=== PATIENT | male | born 1990 | race Caucasian/White ===

== ENCOUNTER 2018-01-04 18:04 | Emergency (ER) | payer OTHER ==
[2018-01-04] MEDS ORDERED: SODIUM CHLORIDE 0.9% 1,000 ML IV ONE (18:39)
[2018-01-04 18:41] LABS: BASOPHILS # (AUTO) 0.1 10^3/uL (0.0-0.1); BASOPHILS % (AUTO) 0.7 %; EOSINOPHILS # (AUTO) 0.1 10^3/uL (0.0-0.7); EOSINOPHILS % (AUTO) 1.2 %; HGB - HEMOGLOBIN 15.3 g/dL (14.0-18.0); LYMPHOCYTES # (AUTO) 2.4 10^3/uL (1.5-3.5); LYMPHOCYTES % (AUTO) 28.2 %; MEAN CORPUSCULAR HEMOGLOBIN 30.7 pg (27.0-31.0); MEAN CORPUSCULAR VOLUME 87.8 fL (80.0-94.0); MEAN PLATELET VOLUME 9.9 fL (7.4-11.4); MONOCYTES # (AUTO) 0.6 10^3/uL (0.0-1.0); MONOCYTES % (AUTO) 6.9 %; NEUTROPHILS # (AUTO) 5.4 10^3/uL (1.5-6.6); PLT - PLATELET COUNT 181 10^3/uL (130-450); RED BLOOD COUNT 4.98 10^6/uL (4.70-6.10); RED CELL DISTRIBUTION WIDTH 14.1 % (12.0-15.0); WHITE BLOOD COUNT 8.5 x10^3/uL (4.8-10.8)
--- NOTE | 2018-01-04 18:41 | ED Physician Documentation ---
PD HPI NVD - Stated complaint Stated Complaint: LIGHTHEADED/NAUSEATED/NECK PX - Chief complaint Chief Complaint: Abd Pain - History obtained from History obtained from: Patient - History of Present Illness Timing - onset: Other (The last 2 days he has been feeling a little ill and achy with left-sided neck pain but nothing was very severe until about 45 minutes after eating a sandwich for lunch today and he got acutely nauseous and very dizzy, lightheaded when upright and better with being flat. He never vomited. It is not associated with abdominal pain or diarrhea. He has not had sick contacts or recent travel. There is no sore throat.) Review of Systems Constitutional: reports: Chills, Fatigue. denies: Fever Nose: denies: Rhinorrhea / runny nose, Congestion Throat: denies: Sore throat Cardiac: denies: Chest pain / pressure, Palpitations Respiratory: denies: Dyspnea, Cough GI: reports: Nausea. denies: Abdominal Pain, Vomiting, Diarrhea : denies: Dysuria PD PAST MEDICAL HISTORY - Past Medical History Past Medical History: No - Past Surgical History Past Surgical History: No - Present Medications Home Medications: Ambulatory Orders Medication Instructions Recorded Confirmed No Known Home Medications [No 01/04/18 01/04/18 Known Home Medications] - Allergies Allergies/Adverse Reactions: Allergies Allergy/AdvReac Type Severity Reaction Status Date / Time fluoxetine Allergy Anxiety Verified 01/04/18 18:13 - Social History Does the pt smoke?: No Smoking Status: Never smoker PD ED PE NORMAL - Vitals Vital signs reviewed: Yes - General General: Alert and oriented X 3, No acute distress - HEENT HEENT: PERRL, EOMI - Neck Neck: Supple, no meningeal sign, No bony TTP - Cardiac Cardiac: RRR, No murmur - Respiratory Respiratory: No respiratory distress, Clear bilaterally - Abdomen Abdomen: Normal bowel sounds, Soft, Non tender - Back Back: No CVA TTP, No spinal TTP - Derm Derm: Normal color, Warm and dry - Extremities Extremities: No edema, No calf tenderness / cord - Neuro Neuro: Alert and oriented X 3, Normal speech Results - Vitals Vitals: Vital Signs - 24 hr 01/04/18 18:07 Temperature 36.1 C L Heart Rate 75 Respiratory 20 Rate Blood Pressure 152/90 H O2 Saturation 98 Oxygen O2 Source Room air - Labs Labs: Laboratory Tests 01/04/18 01/04/18 18:34 18:34 WBC 8.5 RBC 4.98 Hgb 15.3 Hct 43.7 MCV 87.8 MCH 30.7 MCHC 35.0 RDW 14.1 Plt Count 181 MPV 9.9 Neut # (Auto) 5.4 Lymph # (Auto) 2.4 [place] # (Auto) 0.6 Eos # (Auto) 0.1 Baso # (Auto) 0.1 Absolute Nucleated RBC 0.00 Nucleated RBC % 0.1 Sodium 136 Potassium 3.9 Chloride 101 Carbon Dioxide 25 Anion Gap 10.0 BUN 13 Creatinine 1.1 Estimated GFR (MDRD) 80 L Glucose 97 Calcium 9.3 Total Bilirubin 0.7 AST 32 ALT 43 Alkaline Phosphatase 64 Total Protein 7.6 Albumin 4.4 Globulin 3.2 Albumin/Globulin Ratio 1.4 Lipase 29 PD MEDICAL DECISION MAKING - ED course ED course: 27-year-old gentleman with nonspecific symptoms of left-sided neck pain without abnormality on physical examination and vomiting and lightheadedness today with unremarkable exam and diagnostics here. Feeling better after IV fluids. - Sepsis Event Vital Signs: Vital Signs - 24 hr 01/04/18 18:07 Temperature 36.1 C L Heart Rate 75 Respiratory 20 Rate Blood Pressure 152/90 H O2 Saturation 98 Oxygen O2 Source Room air Departure - Departure Disposition: 01 Home, Self Care Clinical Impression: Dizziness, Neck pain Condition: Good Record reviewed to determine appropriate education?: Yes Instructions: ED Dizziness UKO Comments: Your blood pressure was elevated today on check into the emergency department. This does not mean that you have hypertension, it is a common phenomenon to come to the emergency department and have elevated blood pressure. I recommend that you see your primary care physician within the week to have it rechecked when you are feeling better.
[2018-01-04 19:08] LABS: ALBUMIN 4.4 g/dL (3.2-5.5); ALBUMIN/GLOBULIN RATIO 1.4 (1.0-2.2); BILIRUBIN,TOTAL 0.7 mg/dL (0.2-1.0); CALCIUM 9.3 mg/dL (8.5-10.3); CREATININE 1.1 mg/dL (0.6-1.2); TOTAL PROTEIN 7.6 g/dL (6.7-8.2)
[2018-01-04 19:26] VITALS: BP 144/71
== END 2018-01-04 19:35 | disposition home or self-care (01) ==
LOC: ED 18:04
DX: R42 Dizziness and giddiness (principal); M54.2 Cervicalgia
CPT/HCPCS: 36415; 80053; 83690; 85025; 96360; 99283

== ENCOUNTER 2018-02-12 19:23 | Emergency (ER) | payer OTHER ==
[2018-02-12] MEDS ORDERED: SODIUM CHLORIDE 0.9% 1,000 ML IV ONE (20:46)
[2018-02-12 20:49] LABS: BASOPHILS # (AUTO) 0.1 10^3/uL (0.0-0.1); BASOPHILS % (AUTO) 1.2 %; EOSINOPHILS # (AUTO) 0.1 10^3/uL (0.0-0.7); EOSINOPHILS % (AUTO) 0.9 %; HGB - HEMOGLOBIN 15.7 g/dL (14.0-18.0); LYMPHOCYTES # (AUTO) 2.8 10^3/uL (1.5-3.5); LYMPHOCYTES % (AUTO) 29.6 %; MEAN CORPUSCULAR HEMOGLOBIN 31.3 pg (27.0-31.0); MEAN CORPUSCULAR HGB CONC 34.7 g/dL (32.0-36.0); MEAN PLATELET VOLUME 10.1 fL (7.4-11.4); MONOCYTES # (AUTO) 0.7 10^3/uL (0.0-1.0); NEUTROPHILS # (AUTO) 5.6 10^3/uL (1.5-6.6); NEUTROPHILS % (AUTO) 60.3 %; PLT - PLATELET COUNT 176 10^3/uL (130-450); RED BLOOD COUNT 5.02 10^6/uL (4.70-6.10); RED CELL DISTRIBUTION WIDTH 13.9 % (12.0-15.0); WHITE BLOOD COUNT 9.3 x10^3/uL (4.8-10.8)
[2018-02-12] MEDS ORDERED: ONDANSETRON 4 MG/2 ML VIAL IVP STA (20:54)
--- NOTE | 2018-02-12 20:54 | ED Physician Documentation ---
PD HPI ABD PAIN - Stated complaint Stated Complaint: LT SIDE PX - Chief complaint Chief Complaint: Abd Pain - History obtained from History obtained from: Patient - History of Present Illness Timing - onset: How many days ago (5) Timing - duration: Days (5) Timing - details: Gradual onset Pain level max: 5 Pain level now: 5 Quality: Cramping, Aching, Pain Location: Other (L sided abdomen) Radiation: Other (non-radiating) Improved by: Other (nothing) Worsened by: Other (eating, moving) Associated symptoms: Fever (states felt warm), Nausea, Diarrhea. No: Vomiting, Hematemesis, Constipation, Melena, Hematochezia Review of Systems Constitutional: reports: Fever (sibjective), Chills Nose: denies: Rhinorrhea / runny nose, Congestion Throat: denies: Sore throat Cardiac: denies: Chest pain / pressure Respiratory: denies: Cough Skin: denies: Rash Musculoskeletal: denies: Neck pain, Back pain Neurologic: denies: Focal weakness, Numbness, Headache PD PAST MEDICAL HISTORY - Past Medical History Past Medical History: No - Past Surgical History Past Surgical History: No - Present Medications Home Medications: Ambulatory Orders Medication Instructions Recorded Confirmed Ondansetron Odt [Zofran] 4 mg TL Q6H PRN #10 tablet 02/12/18 - Allergies Allergies/Adverse Reactions: Allergies Allergy/AdvReac Type Severity Reaction Status Date / Time fluoxetine Allergy Anxiety Verified 02/12/18 19:28 - Living Situation Living Situation: reports: With family Living Arrangement: reports: At home - Social History Does the pt smoke?: No Smoking Status: Never smoker PD ED PE NORMAL - Vitals Vital signs reviewed: Yes - General General: Alert and oriented X 3, No acute distress - HEENT HEENT: Moist mucous membranes - Neck Neck: Supple, no meningeal sign - Cardiac Cardiac: RRR - Respiratory Respiratory: No respiratory distress, Clear bilaterally - Abdomen Abdomen: Soft, Other (LLQ mild ttp without peritoneal signs. ) - Back Back: No CVA TTP, No spinal TTP - Derm Derm: Warm and dry - Extremities Extremities: No edema - Neuro Neuro: Alert and oriented X 3 - Psych Psych: Normal mood, Normal affect Results - Vitals Vitals: Vital Signs - 24 hr 02/12/18 02/12/18 02/12/18 19:25 21:42 22:35 Temperature 35.8 C L 36.5 C Heart Rate 84 72 65 Respiratory 16 16 14 Rate Blood Pressure 139/86 H 114/80 121/84 H O2 Saturation 97 97 96 Oxygen O2 Source Room air - Labs Labs: Laboratory Tests 02/12/18 02/12/18 02/12/18 20:40 20:43 20:43 WBC 9.3 RBC 5.02 Hgb 15.7 Hct 45.2 MCV 90.0 MCH 31.3 H MCHC 34.7 RDW 13.9 Plt Count 176 MPV 10.1 Neut # (Auto) 5.6 Lymph # (Auto) 2.8 [place] # (Auto) 0.7 Eos # (Auto) 0.1 Baso # (Auto) 0.1 Absolute Nucleated RBC 0.01 Nucleated RBC % 0.1 Sodium 136 Potassium 3.7 Chloride 102 Carbon Dioxide 29 Anion Gap 5.0 L BUN 16 Creatinine 0.9 Estimated GFR (MDRD) 101 Glucose 94 Calcium 9.3 Total Bilirubin 0.4 AST 20 ALT 39 Alkaline Phosphatase 59 Total Protein 8.4 H Albumin 4.5 Globulin 3.9 Albumin/Globulin Ratio 1.2 Lipase 34 Urine Color YELLOW Urine Clarity CLEAR Urine pH 7.0 Ur Specific [place] 1.015 Urine Protein NEGATIVE Urine Glucose (UA) NEGATIVE Urine Ketones NEGATIVE Urine Occult Blood NEGATIVE Urine Nitrite NEGATIVE Urine Bilirubin NEGATIVE Urine Urobilinogen 0.2 (NORMAL) Ur Leukocyte Esterase NEGATIVE Ur Microscopic Review NOT INDICATED Urine Culture Comments NOT INDICATED - Rads (name of study) CT abd/pelvis Radiology: Prelim report reviewed, EMP read contemporaneously, See rad report (No acute abnormalities. ) PD MEDICAL DECISION MAKING - ED course Complexity details: reviewed results, re-evaluated patient (Soft nontender nondistended abdomen on serial exam), considered differential, d/w patient ED course: Patient is a 27-year-old male who presents to the emergency department with what appears to be likely viral diarrhea. Nonbloody. No evidence of diverticulitis or abscess on CT scan. He is well-appearing, nontoxic. Afebrile. Tolerating p.o. without difficulty. No laboratory testing abnormalities. We will have him follow-up with his PCP for further care patient counseled regarding signs and symptoms for which I believe and urgent re-evaluation would be necessary. Patient with good understanding of and agreement to plan and is comfortable going home at this time This document was made in part using voice recognition software. While efforts are made to proofread this document, sound alike and grammatical errors may occur. - Sepsis Event Vital Signs: Vital Signs - 24 hr 02/12/18 02/12/18 02/12/18 19:25 21:42 22:35 Temperature 35.8 C L 36.5 C Heart Rate 84 72 65 Respiratory 16 16 14 Rate Blood Pressure 139/86 H 114/80 121/84 H O2 Saturation 97 97 96 Oxygen O2 Source Room air Departure - Departure Disposition: 01 Home, Self Care Clinical Impression: Viral syndrome Diarrhea Qualifiers: Diarrhea type: unspecified type Qualified Code(s): R19.7 - Diarrhea, unspecified Condition: Good Instructions: ED Diarrhea Viral, ED Viral Syndrome Follow-Up: Gwendolyn Renae MD [Primary Care Provider] - Within 1 week (if not better) Prescriptions: Ondansetron Odt [Zofran] 4 mg TL Q6H PRN #10 tablet PRN Reason: Nausea / Vomiting Comments: Drink plenty of fluids. Return if you worsen. Discharge Date/Time: 02/12/18 21:36
[2018-02-12] MEDS ORDERED: IOPAMIDOL-300 100 ML VIAL ONE (20:59)
[2018-02-12 21:03] LABS: ALBUMIN 4.5 g/dL (3.2-5.5); ALBUMIN/GLOBULIN RATIO 1.2 (1.0-2.2); BILIRUBIN,TOTAL 0.4 mg/dL (0.2-1.0); CALCIUM 9.3 mg/dL (8.5-10.3); CREATININE 0.9 mg/dL (0.6-1.2); TOTAL PROTEIN 8.4 g/dL (6.7-8.2)
[2018-02-12] MEDS ORDERED: IOPAMIDOL-300 100 ML VIAL IVP ONE (21:21)
[2018-02-12 21:22] LABS: BILIRUBIN,URINE NEGATIVE (NEGATIVE); GLUCOSE, URINE (UA) NEGATIVE (NEGATIVE); KETONES,URINE (UA) NEGATIVE (NEGATIVE); LEUKOCYTE ESTERASE, URINE NEGATIVE (NEGATIVE); NITRITE,URINE NEGATIVE (NEGATIVE); OCCULT BLOOD,URINE NEGATIVE (NEGATIVE); PROTEIN,URINE NEGATIVE (NEGATIVE); UROBILINOGEN,URINE 0.2 (NORMAL) E.U./dL (NORMAL)
[2018-02-12 21:23] LABS: CLARITY,URINE CLEAR (CLEAR)
--- NOTE | 2018-02-12 21:40 | CT Report ---
Reason: L sided abd pain Procedure Date: 02/12/2018 Accession Number: [id number] / [id number] Procedure: CT - Abdomen/Pelvis W/ CPT Code: FULL RESULT: EXAM: CT ABDOMEN AND PELVIS EXAM DATE: 02/12/2018 09:28 PM. CLINICAL HISTORY: L sided abd pain. COMPARISONS: None. TECHNIQUE: Routine helical CT imaging was performed through the abdomen and pelvis. IV contrast: ISOVUE 300 100mL. Enteric contrast: No. Reconstructions: Coronal and sagittal. In accordance with CT protocol optimization, one or more of the following dose reduction techniques were utilized for this exam: automated exposure control, adjustment of mA and/or KV based on patient size, or use of iterative reconstructive technique. FINDINGS: ABDOMEN: Lung Bases: Incompletely included lower lungs are grossly clear. Heart size is within normal limits. No basilar effusions. Liver: Unremarkable. Spleen: Unremarkable. Pancreas: Unremarkable. Gallbladder/Bile Ducts: Gallbladder is unremarkable. Biliary tree is normal caliber. Adrenal Glands: Unremarkable. Kidneys: No mass, calculi, or hydronephrosis. Peritoneum/Mesentery/Bowel: No free fluid, free air, or collection. No intestinal obstruction or inflammation. The appendix is within normal limits. Lymph nodes: No mesenteric, periportal, or retroperitoneal lymphadenopathy. Vasculature: Abdominal aorta is nonaneurysmal. Portal vein is patent. Hepatic veins are patent. PELVIS: The bladder is unremarkable for the degree of distention. Prostate is present. No pelvic lymphadenopathy. Bones: No suspicious osseous lesions. IMPRESSION: No acute abnormalities. RADIA
[2018-02-12] MEDS ORDERED: KETOROLAC 60 MG/2 ML VIAL IVP STA (22:00)
[2018-02-12 22:39] VITALS: BP 121/84
== END 2018-02-12 21:36 | disposition home or self-care (01) ==
LOC: ED 19:23
DX: B34.9 Viral infection, unspecified (principal); R19.7 Diarrhea, unspecified; R11.0 Nausea
CPT/HCPCS: 36415; 74177; 80053; 81003; 83690; 85025; 96361; 96374; 96375; 99283; 99284; Q9967; 81001; 87086

== ENCOUNTER 2018-04-17 13:30 | Emergency (ER) | payer OTHER ==
[2018-04-17] MEDS ORDERED: predniSONE 20 MG TABLET PO STA (13:35)
--- NOTE | 2018-04-17 13:37 | ED Physician Documentation ---
History of Present Illness - Stated complaint Stated Complaint: THROAT PX - Chief complaint Chief Complaint: General - History obtained from History obtained from: Patient - History of Present Illness Timing: Other (Days of severe sore throat especially bad at night. He saw his doctor, there is a throat culture pending but results are not available at this time. He was given lidocaine mouthwash which is on helpful. He has a cough. Had a runny nose but that is better. No fevers.) Review of Systems Constitutional: denies: Fever, Chills, Myalgias Ears: denies: Loss of hearing, Ear pain Nose: reports: Rhinorrhea / runny nose Throat: reports: Sore throat Respiratory: reports: Cough PD PAST MEDICAL HISTORY - Past Surgical History Past Surgical History: No - Present Medications Home Medications: Ambulatory Orders Medication Instructions Recorded Confirmed Hydrocodone/Acetaminophen 1 each PO Q6HR PRN #10 tablet 04/17/18 [Hydrocodone-Acetamin 5-325 mg] predniSONE [Deltasone] 60 mg PO DAILY 5 Days tablet 04/17/18 - Allergies Allergies/Adverse Reactions: Allergies Allergy/AdvReac Type Severity Reaction Status Date / Time fluoxetine Allergy Anxiety Verified 04/17/18 13:35 - Social History Does the pt smoke?: No Smoking Status: Never smoker Does the pt drink ETOH?: Yes Does the pt have substance abuse?: No - Immunizations Immunizations are current?: Yes - POLST Patient has POLST: No PD ED PE NORMAL - Vitals Vital signs reviewed: Yes - General General: Alert and oriented X 3, No acute distress - HEENT HEENT: Ears normal, Pharynx benign - Neck Neck: Supple, no meningeal sign, No bony TTP, No adenopathy - Respiratory Respiratory: No respiratory distress, Clear bilaterally - Neuro Neuro: Alert and oriented X 3, Normal speech - Psych Psych: Normal mood, Normal affect Results - Vitals Vitals: Vital Signs - 24 hr 04/17/18 13:34 Temperature 36.7 C Heart Rate 81 Respiratory 16 Rate Blood Pressure 136/88 H O2 Saturation 99 Oxygen O2 Source Room air - Labs Labs: Laboratory Tests 04/17/18 13:35 Group A Strep Rapid Negative Departure - Departure Disposition: 01 Home, Self Care Clinical Impression: Viral pharyngitis Condition: Good Record reviewed to determine appropriate education?: Yes Instructions: ED Pharyngitis Viral Report Pending Prescriptions: Hydrocodone/Acetaminophen [Hydrocodone-Acetamin 5-325 mg] 1 each PO Q6HR PRN #10 tablet PRN Reason: Pain predniSONE [Deltasone] 60 mg PO DAILY 5 Days tablet Comments: Call your doctor to arrange a follow-up appointment, make the next available appointment. In the interim, return anytime if worse or if new symptoms develop. Your blood pressure was elevated today on check into the emergency department. This does not mean that you have hypertension, it is a common phenomenon to come to the emergency department and have elevated blood pressure. I recommend that you see your primary care physician within the week to have it rechecked when you are feeling better.
[2018-04-17 14:16] VITALS: BP 143/78
== END 2018-04-17 14:19 | disposition home or self-care (01) ==
LOC: ED 13:30
DX: J02.8 Acute pharyngitis due to other specified organisms (principal); R03.0 Elevated blood-pressure reading, without diagnosis of hypertension
CPT/HCPCS: 87070; 87430; 99283; J7512

== ENCOUNTER 2018-04-23 20:21 | Emergency (ER) | payer OTHER ==
[2018-04-23] MEDS ORDERED: HYDROcod/ACET 5/325 Prepack 4 PO STA (20:49)
[2018-04-23] MEDS ORDERED: BENZONATATE 100 MG CAPSULE PO STA (20:49)
--- NOTE | 2018-04-23 20:51 | ED Physician Documentation ---
History of Present Illness - Stated complaint Stated Complaint: SORETHROAT/COUGH - Chief complaint Chief Complaint: General - History obtained from History obtained from: Patient - History of Present Illness Timing: Other (Sick for 3 weeks with productive cough and sore throat. Worse at night. No fevers and he is not short of breath. He was seen about a week ago here for same, strep test was negative. He had no relief with prednisone.) Review of Systems Constitutional: denies: Fever, Chills Ears: denies: Ear pain Nose: reports: Rhinorrhea / runny nose, Congestion Throat: reports: Sore throat Respiratory: reports: Cough. denies: Dyspnea GI: denies: Abdominal Pain PD PAST MEDICAL HISTORY - Past Surgical History Past Surgical History: No - Present Medications Home Medications: Ambulatory Orders Medication Instructions Recorded Confirmed Hydrocodone/Acetaminophen 1 each PO Q6HR PRN #10 tablet 04/17/18 [Hydrocodone-Acetamin 5-325 mg] predniSONE [Deltasone] 60 mg PO DAILY 5 Days tablet 04/17/18 Benzonatate [Tessalon Perle] 100 - 200 mg PO TID PRN #30 capsule 04/23/18 Hydrocodone/Chlorphen P-Stirex 5 ml PO BID PRN #90 ml 04/23/18 [Hydrocodone-Chlorphen ER Susp] - Allergies Allergies/Adverse Reactions: Allergies Allergy/AdvReac Type Severity Reaction Status Date / Time fluoxetine Allergy Anxiety Verified 04/23/18 20:30 - Social History Does the pt smoke?: No Smoking Status: Never smoker Does the pt drink ETOH?: Yes Does the pt have substance abuse?: No - Immunizations Immunizations are current?: Yes - POLST Patient has POLST: No PD ED PE NORMAL - Vitals Vital signs reviewed: Yes - General General: Alert and oriented X 3, No acute distress - HEENT HEENT: Pharynx benign - Neck Neck: Supple, no meningeal sign, No bony TTP, No adenopathy, No bruit - Cardiac Cardiac: RRR, No murmur - Respiratory Respiratory: No respiratory distress, Clear bilaterally - Abdomen Abdomen: Non tender - Neuro Neuro: Alert and oriented X 3, Normal speech Results - Vitals Vitals: Vital Signs - 24 hr 04/23/18 20:28 Temperature 36.9 C Heart Rate 79 Respiratory 17 Rate Blood Pressure 145/79 H O2 Saturation 96 Oxygen O2 Source Room air Departure - Departure Disposition: Home, Self Care Clinical Impression: Viral pharyngitis, Viral syndrome Condition: Good Record reviewed to determine appropriate education?: Yes Instructions: ED Pharyngitis Viral Prescriptions: Benzonatate [Tessalon Perle] 100 - 200 mg PO TID PRN #30 capsule PRN Reason: Cough Hydrocodone/Chlorphen P-Stirex [Hydrocodone-Chlorphen ER Susp] 5 ml PO BID PRN #90 ml PRN Reason: Cough Comments: Call your doctor to arrange a follow-up appointment, make the next available appointment. In the interim, return anytime if worse or if new symptoms develop. Your blood pressure was elevated today on check into the emergency department. This does not mean that you have hypertension, it is a common phenomenon to come to the emergency department and have elevated blood pressure. I recommend that you see your primary care physician within the week to have it rechecked when you are feeling better.
[2018-04-23 21:04] VITALS: BP 140/76
== END 2018-04-23 21:03 | disposition home or self-care (01) ==
LOC: ED 20:21
DX: J02.9 Acute pharyngitis, unspecified (principal); B34.9 Viral infection, unspecified; R03.0 Elevated blood-pressure reading, without diagnosis of hypertension
CPT/HCPCS: 99283; A9270

== ENCOUNTER 2018-09-07 14:38 | Emergency (ER) | payer OTHER ==
[2018-09-07 15:00] VITALS: BP 128/75
--- NOTE | 2018-09-07 15:40 | ED Physician Documentation ---
PD HPI SKIN - Stated complaint Stated Complaint: HEAD PX/LUMP ON HEAD - Chief complaint Chief Complaint: General - History obtained from History obtained from: Patient - History of Present Illness Timing - onset: How many days ago (2) Timing - duration: Days (2) Timing - details: Gradual onset Location: Scalp (back of head. Noted a tender bump could days ago and now with 2-3 small tender bumps. Has not noted any drainage.) Quality / character: Painful, Discolored (red), Raised. No: Vesicular, Draining Associated symptoms: No: Fever, Myalgias, N/V/D Similar symptoms before: Has not had sx before Review of Systems Constitutional: denies: Fever, Chills, Myalgias GI: denies: Nausea, Vomiting Skin: reports: Lesions Neurologic: denies: Altered mental status, Headache PD PAST MEDICAL HISTORY - Past Medical History Cardiovascular: None Respiratory: None Neuro: None Endocrine/Autoimmune: None - Past Surgical History Past Surgical History: No - Present Medications Home Medications: Ambulatory Orders Medication Instructions Recorded Confirmed Hydrocodone/Acetaminophen 1 each PO Q6HR PRN #10 tablet 04/17/18 [Hydrocodone-Acetamin 5-325 mg] predniSONE [Deltasone] 60 mg PO DAILY 5 Days tablet 04/17/18 Benzonatate [Tessalon [place]] 100 - 200 mg PO TID PRN #30 capsule 04/23/18 Hydrocodone/Chlorphen P-Stirex 5 ml PO BID PRN #90 ml 04/23/18 [Hydrocodone-Chlorphen ER Susp] Chlorhexidine Gluconate [Hibiclens] 15 ml TP DAILY #236 ml 09/07/18 Mupirocin 1 applic TP TID #15 g 09/07/18 Sulfamethox/Trimeth 800/160 1 each PO BID #14 tablet 09/07/18 [Bactrim Ds 800/160] - Allergies Allergies/Adverse Reactions: Allergies Allergy/AdvReac Type Severity Reaction Status Date / Time fluoxetine Allergy Anxiety Verified 04/23/18 20:30 - Social History Does the pt smoke?: No Smoking Status: Never smoker Does the pt drink ETOH?: Yes Does the pt have substance abuse?: No - Immunizations Immunizations are current?: Yes - POLST Patient has POLST: No PD ED PE NORMAL - Vitals Vital signs reviewed: Yes - General General: Alert and oriented X 3, No acute distress, Well developed/nourished - HEENT HEENT: Ears normal, Pharynx benign - Neck Neck: Supple, no meningeal sign, No adenopathy - Cardiac Cardiac: RRR, No murmur - Respiratory Respiratory: Clear bilaterally - Derm Derm: Normal color, Warm and dry, Other (lower occiput with small area of several small bumps midline just into hairline. Faint pustule appearance to one of them. Red and tender the others. They are only 3-4 mm size each. Does not have vesicle appearance of shingles, but more small cluster of folliculitis/abscesses. ) Results - Vitals Vitals: Vital Signs - 24 hr 09/07/18 14:55 Temperature 36.6 C Heart Rate 73 Respiratory 16 Rate Blood Pressure 128/75 O2 Saturation 99 Oxygen O2 Source Room air PD MEDICAL DECISION MAKING - ED course Complexity details: considered differential (small red bumps without fluctuance, seems c/w small staph abscesses. ), d/w patient Departure - Departure Disposition: 01 Home, Self Care Clinical Impression: Abscess or cellulitis of scalp Condition: Stable Record reviewed to determine appropriate education?: Yes Instructions: ED Staph Infec Abx Tx Only Follow-Up: TONY BROCK PA-C [Primary Care Provider] - Prescriptions: Chlorhexidine Gluconate [Hibiclens] 15 ml TP DAILY #236 ml Mupirocin 1 applic TP TID #15 g Sulfamethox/Trimeth 800/160 [Bactrim Ds 800/160] 1 each PO BID #14 tablet Comments: This looks like small early abscesses and are not big enough to need draining at this point. Use some topical antibiotic ointment mupirocin twice daily. Oral antibiotic Bactrim twice daily for 7-10 days until it seems fully cleared. You can use chlorhexidine body soap which is an antiseptic and he can use it in the scalp for washing her hair first and then regular shampoo. This would try to reduce the germs on the surface of the do not find new spots. Recheck if not improved over the next several days. Discharge Date/Time: 09/07/18 16:20
[2018-09-07] MEDS ORDERED: MUPIROCIN 2% OINT 1 GM TOP STA (15:57)
[2018-09-07] MEDS ORDERED: SULFAMETH/TRIMETH DS 800/160 MG TABLET PO STA (15:57)
== END 2018-09-07 16:20 | disposition home or self-care (01) ==
LOC: ED 14:38
DX: L02.811 Cutaneous abscess of head [any part, except face] (principal)
CPT/HCPCS: 99283; A9270

== ENCOUNTER 2018-09-27 11:25 | Outpatient (CLI) | payer OTHER | END 2018-09-27 11:26 | disposition home or self-care (01) | LOC: SC 11:25 | PROVIDERS: ATTEND Internal Medicine Pulmonary Disease | DX: R06.83 Snoring (principal); G47.10 Hypersomnia, unspecified; G47.8 Other sleep disorders; R41.89 Other symptoms and signs involving cognitive functions and awareness; G47.00 Insomnia, unspecified | CPT/HCPCS: 99203; 99212 ==

== ENCOUNTER 2018-10-16 19:33 | Outpatient (CLI) | payer OTHER | END 2018-10-16 19:34 | disposition home or self-care (01) | LOC: SC 19:33 | PROVIDERS: ATTEND Internal Medicine Pulmonary Disease | DX: R06.83 Snoring (principal) | CPT/HCPCS: 95810 ==

== ENCOUNTER 2018-11-13 18:52 | Emergency (ER) | payer OTHER ==
[2018-11-13 18:59] VITALS: BP 151/90
[2018-11-13 19:23] LABS: BILIRUBIN,URINE NEGATIVE (NEGATIVE); GLUCOSE, URINE (UA) NEGATIVE (NEGATIVE); KETONES,URINE (UA) NEGATIVE (NEGATIVE); LEUKOCYTE ESTERASE, URINE NEGATIVE (NEGATIVE); NITRITE,URINE NEGATIVE (NEGATIVE); OCCULT BLOOD,URINE NEGATIVE (NEGATIVE); PH,URINE 5.5 PH (5.0-7.5); PROTEIN,URINE NEGATIVE (NEGATIVE); UROBILINOGEN,URINE 0.2 (NORMAL) E.U./dL (NORMAL)
[2018-11-13 19:27] LABS: CLARITY,URINE CLEAR (CLEAR)
[2018-11-13 19:28] LABS: BASOPHILS # (AUTO) 0.1 10^3/uL (0.0-0.1); BASOPHILS % (AUTO) 0.8 %; EOSINOPHILS # (AUTO) 0.1 10^3/uL (0.0-0.7); EOSINOPHILS % (AUTO) 0.9 %; HGB - HEMOGLOBIN 15.6 g/dL (14.0-18.0); LYMPHOCYTES # (AUTO) 2.5 10^3/uL (1.5-3.5); LYMPHOCYTES % (AUTO) 25.2 %; MEAN CORPUSCULAR HEMOGLOBIN 30.2 pg (27.0-31.0); MEAN CORPUSCULAR HGB CONC 34.1 g/dL (32.0-36.0); MEAN CORPUSCULAR VOLUME 88.5 fL (80.0-94.0); MEAN PLATELET VOLUME 9.8 fL (7.4-11.4); MONOCYTES # (AUTO) 0.7 10^3/uL (0.0-1.0); MONOCYTES % (AUTO) 6.6 %; NEUTROPHILS # (AUTO) 6.6 10^3/uL (1.5-6.6); NEUTROPHILS % (AUTO) 66.5 %; PLT - PLATELET COUNT 221 10^3/uL (130-450); RED BLOOD COUNT 5.16 10^6/uL (4.70-6.10); WHITE BLOOD COUNT 9.9 x10^3/uL (4.8-10.8)
[2018-11-13] MEDS ORDERED: PHENobarb/HYOSCY/ATROPINE/SCOP 5 ML UDC PO STA (19:28)
[2018-11-13] MEDS ORDERED: MAG HYDROX/AL HYDROX/SIMETH 30 ML UDC PO STA (19:28)
[2018-11-13] MEDS ORDERED: LIDOCAINE VISCOUS 2% 15 ML UDC MM STA (19:28)
[2018-11-13] MEDS ORDERED: SUCRALFATE 1 GM/10 ML UDC PO STA (19:28)
[2018-11-13] MEDS ORDERED: FAMOTIDINE 20 MG TABLET PO STA (19:28)
[2018-11-13 19:39] LABS: ALBUMIN 4.4 g/dL (3.2-5.5); ALBUMIN/GLOBULIN RATIO 1.1 (1.0-2.2); BILIRUBIN,TOTAL 0.3 mg/dL (0.2-1.0); CALCIUM 9.5 mg/dL (8.5-10.3); CREATININE 0.8 mg/dL (0.6-1.2); TOTAL PROTEIN 8.3 g/dL (6.7-8.2)
--- NOTE | 2018-11-13 20:09 | ED Physician Documentation ---
PD HPI ABD PAIN - Stated complaint Stated Complaint: STOMACH PX - Chief complaint Chief Complaint: Abd Pain - History obtained from History obtained from: Patient - History of Present Illness Timing - onset: How many days ago (3) Timing - duration: Days (3) Timing - details: Gradual onset Pain level max: 3 Pain level now: 3 Quality: Other (pressure in his epigastrum) Location: Epigastric Improved by: Other (nothing) Worsened by: Eating Associated symptoms: No: Fever Recently seen: Not recently seen - Additional information Additional information: 28-year-old male with epigastric pain after having nausea vomiting and diarrhea 2 days ago that he attributed to food poisoning. No fevers. Took Pepto-Bismol w ithout relief. Currently has no nausea or vomiting. Review of Systems Constitutional: denies: Fever, Chills Throat: denies: Sore throat Respiratory: denies: Cough : denies: Dysuria Skin: denies: Rash Musculoskeletal: denies: Neck pain, Back pain PD PAST MEDICAL HISTORY - Past Medical History Past Medical History: No Cardiovascular: None Respiratory: None Neuro: None Endocrine/Autoimmune: None - Past Surgical History Past Surgical History: No - Present Medications Home Medications: Ambulatory Orders Medication Instructions Recorded Confirmed Hydrocodone/Acetaminophen 1 each PO Q6HR PRN #10 tablet 04/17/18 [Hydrocodone-Acetamin 5-325 mg] predniSONE [Deltasone] 60 mg PO DAILY 5 Days tablet 04/17/18 Benzonatate [Tessalon Perle] 100 - 200 mg PO TID PRN #30 capsule 04/23/18 Hydrocodone/Chlorphen P-Stirex 5 ml PO BID PRN #90 ml 04/23/18 [Hydrocodone-Chlorphen ER Susp] Chlorhexidine Gluconate [Hibiclens] 15 ml TP DAILY #236 ml 09/07/18 Mupirocin 1 applic TP TID #15 g 09/07/18 Sulfamethox/Trimeth 800/160 1 each PO BID #14 tablet 09/07/18 [Bactrim Ds 800/160] Famotidine [Pepcid] 20 mg PO BID #14 tablet 11/13/18 Sucralfate [Carafate] 1 gm PO ACHS #20 tablet 11/13/18 - Allergies Allergies/Adverse Reactions: Allergies Allergy/AdvReac Type Severity Reaction Status Date / Time fluoxetine Allergy Anxiety Verified 11/13/18 18:59 - Social History Does the pt smoke?: No Smoking Status: Never smoker Does the pt drink ETOH?: Yes Does the pt have substance abuse?: No - Immunizations Immunizations are current?: Yes - POLST Patient has POLST: No PD ED PE NORMAL - Vitals Vital signs reviewed: Yes - General General: Alert and oriented X 3, No acute distress - HEENT HEENT: Moist mucous membranes - Neck Neck: Supple, no meningeal sign - Cardiac Cardiac: RRR - Respiratory Respiratory: No respiratory distress, Clear bilaterally - Abdomen Abdomen: Soft, Non distended, Other (Tender palpation epigastric with no peritoneal signs. No right upper quadrant tenderness. Negative Paris sign) - Back Back: No CVA TTP, No spinal TTP - Derm Derm: Warm and dry - Neuro Neuro: Alert and oriented X 3 - Psych Psych: Normal mood, Normal affect Results - Vitals Vitals: Vital Signs - 24 hr 11/13/18 18:57 Temperature 36.5 C Heart Rate 67 Respiratory 18 Rate Blood Pressure 151/90 H O2 Saturation 97 Oxygen O2 Source Room air - Labs Labs: Laboratory Tests 11/13/18 11/13/18 11/13/18 19:10 19:15 19:15 WBC 9.9 RBC 5.16 Hgb 15.6 Hct 45.7 MCV 88.5 MCH 30.2 MCHC 34.1 RDW 14.0 Plt Count 221 MPV 9.8 Neut # (Auto) 6.6 Lymph # (Auto) 2.5 [place] # (Auto) 0.7 Eos # (Auto) 0.1 Baso # (Auto) 0.1 Absolute Nucleated RBC 0.01 Nucleated RBC % 0.1 Sodium 140 Potassium 4.1 Chloride 105 Carbon Dioxide 25 Anion Gap 10.0 BUN 13 Creatinine 0.8 Estimated GFR (MDRD) 115 Glucose 94 Calcium 9.5 Total Bilirubin 0.3 AST 21 ALT 35 Alkaline Phosphatase 73 Total Protein 8.3 H Albumin 4.4 Globulin 3.9 Albumin/Globulin Ratio 1.1 Lipase 43 Urine Color YELLOW Urine Clarity CLEAR Urine pH 5.5 Ur Specific Arthur >=1.030 H Urine Protein NEGATIVE Urine Glucose (UA) NEGATIVE Urine Ketones NEGATIVE Urine Occult Blood NEGATIVE Urine Nitrite NEGATIVE Urine Bilirubin NEGATIVE Urine Urobilinogen 0.2 (NORMAL) Ur Leukocyte Esterase NEGATIVE Ur Microscopic Review NOT INDICATED Urine Culture Comments NOT INDICATED PD MEDICAL DECISION MAKING - ED course Complexity details: reviewed results, re-evaluated patient, considered differential, d/w patient ED course: 28-year-old male with what appears to be gastritis. Symptoms resolved with GI cocktail. Will place on an H2 gianna for home. Likely related to his recent vomiting. Patient is well-appearing, nontoxic. Afebrile. Tolerating p.o. wi thout difficulty. No evidence of cholecystitis. No pancreatitis. No peritonitis. Patient counseled regarding signs and symptoms for which I believe and urgent re-evaluation would be necessary. Patient with good understanding of and agreement to plan and is comfortable going home at this time This document was made in part using voice recognition software. While efforts are made to proofread this document, sound alike and grammatical errors may occur. Departure - Departure Disposition: 01 Home, Self Care Clinical Impression: Epigastric pain Gastritis Qualifiers: Gastritis type: unspecified gastritis Chronicity: acute Gastritis bleeding: without bleeding Qualified Code(s): K29.00 - Acute gastritis without bleeding Condition: Good Instructions: ED Abdominal Pain Unkn Cause, ED Gastritis Follow-Up: your,doctor in 1 week [Other] Prescriptions: Famotidine [Pepcid] 20 mg PO BID #14 tablet Sucralfate [Carafate] 1 gm PO ACHS #20 tablet Comments: Return if you worsen. Follow-up with your doctor for further evaluation and care. This should improve over the next few days. Discharge Date/Time: 11/13/18 20:15
== END 2018-11-13 20:15 | disposition home or self-care (01) ==
LOC: ED 18:52
DX: K29.00 Acute gastritis without bleeding (principal)
CPT/HCPCS: 36415; 80053; 81003; 83690; 85025; 99283; A9270; 81001; 87086

== ENCOUNTER 2018-11-24 23:10 | Outpatient (CLI) | payer OTHER | END 2018-11-24 23:11 | disposition critical access hospital (66) | LOC: EMS 23:10 | PROVIDERS: ATTEND Surgery | DX: R53.1 Weakness (principal); M79.602 Pain in left arm; R00.2 Palpitations | CPT/HCPCS: A0425; A0429 ==

== ENCOUNTER 2018-11-24 23:24 | Emergency (ER) | payer OTHER ==
[2018-11-25 00:57] LABS: BASOPHILS # (AUTO) 0.1 10^3/uL (0.0-0.1); BASOPHILS % (AUTO) 0.7 %; EOSINOPHILS # (AUTO) 0.1 10^3/uL (0.0-0.7); EOSINOPHILS % (AUTO) 0.6 %; LYMPHOCYTES # (AUTO) 2.3 10^3/uL (1.5-3.5); LYMPHOCYTES % (AUTO) 27.5 %; MEAN CORPUSCULAR HEMOGLOBIN 29.6 pg (27.0-31.0); MEAN CORPUSCULAR VOLUME 89.5 fL (80.0-94.0); MEAN PLATELET VOLUME 11.5 fL (7.4-11.4); MONOCYTES # (AUTO) 0.6 10^3/uL (0.0-1.0); MONOCYTES % (AUTO) 6.7 %; NEUTROPHILS # (AUTO) 5.3 10^3/uL (1.5-6.6); NEUTROPHILS % (AUTO) 64.1 %; PLT - PLATELET COUNT 205 10^3/uL (130-450); RED BLOOD COUNT 5.07 10^6/uL (4.70-6.10); RED CELL DISTRIBUTION WIDTH 13.4 % (12.0-15.0); WHITE BLOOD COUNT 8.2 x10^3/uL (4.8-10.8)
[2018-11-25 01:15] LABS: ALBUMIN 4.5 g/dL (3.2-5.5); ALBUMIN/GLOBULIN RATIO 1.5 (1.0-2.2); BILIRUBIN,TOTAL 0.6 mg/dL (0.2-1.0); CALCIUM 9.4 mg/dL (8.5-10.3); TOTAL PROTEIN 7.6 g/dL (6.7-8.2)
--- NOTE | 2018-11-25 01:32 | ED Physician Documentation ---
History of Present Illness - Stated complaint Stated Complaint: WEAKNESS - Chief complaint Chief Complaint: Neuro - History obtained from History obtained from: Patient, EMS - History of Present Illness Timing: Today (tonight) Pain level now: 3 Improved by: nothing Worsened by: no exacerbating factors - Additonal information Additional information: tonight, while at home talking with his daughter, patients lips and left upper extremity went numb. This occurred at about 10 PM. He started to drive self to emergency department but symptoms worsened, so he pulled over and called 911. He also complains of a generalized headache. Denies visual changes. Review of Systems Constitutional: reports: Reviewed and negative Eyes: reports: Reviewed and negative Ears: reports: Reviewed and negative Nose: reports: Reviewed and negative Cardiac: reports: Reviewed and negative Respiratory: reports: Reviewed and negative GI: reports: Reviewed and negative Neurologic: reports: Numbness, Headache. denies: Generalized weakness, Focal weakness PD PAST MEDICAL HISTORY - Past Medical History Past Medical History: No Cardiovascular: None Respiratory: None Neuro: None Endocrine/Autoimmune: None - Past Surgical History Past Surgical History: No - Present Medications Home Medications: Ambulatory Orders Medication Instructions Recorded Confirmed No Known Home Medications 11/24/18 11/25/18 - Allergies Allergies/Adverse Reactions: Allergies Allergy/AdvReac Type Severity Reaction Status Date / Time fluoxetine Allergy Anxiety Verified 11/13/18 18:59 - Social History Does the pt smoke?: No Smoking Status: Never smoker Does the pt drink ETOH?: Yes Does the pt have substance abuse?: No - Immunizations Immunizations are current?: Yes - POLST Patient has POLST: No PD ED PE NORMAL - Vitals Vital signs reviewed: Yes - General General: Alert and oriented X 3, No acute distress, Well developed/nourished - HEENT HEENT: Atraumatic, PERRL, EOMI, Moist mucous membranes - Neck Neck: Supple, no meningeal sign - Cardiac Cardiac: RRR, No murmur - Respiratory Respiratory: No respiratory distress, Clear bilaterally - Abdomen Abdomen: Soft, Non tender - Neuro Neuro: Alert and oriented X 3, 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, No motor deficit, No sensory deficit, Normal speech Eye Opening: Spontaneous Motor: Obeys Commands Verbal: Oriented GCS Score: 15 Results - Vitals Vitals: Oxygen O2 Source Room air - Labs Labs: Laboratory Tests 11/25/18 11/25/18 00:55 00:55 WBC 8.2 RBC 5.07 Hgb 15.0 Hct 45.4 MCV 89.5 MCH 29.6 MCHC 33.0 RDW 13.4 Plt Count 205 MPV 11.5 H Neut # (Auto) 5.3 Lymph # (Auto) 2.3 [place] # (Auto) 0.6 Eos # (Auto) 0.1 Baso # (Auto) 0.1 Absolute Nucleated RBC 0.00 Nucleated RBC % 0.0 Sodium 140 Potassium 4.1 Chloride 103 Carbon Dioxide 28 Anion Gap 9.0 BUN 17 Creatinine 1.0 Estimated GFR (MDRD) 89 Glucose 107 H Calcium 9.4 Total Bilirubin 0.6 AST 17 ALT 32 Alkaline Phosphatase 59 Total Protein 7.6 Albumin 4.5 Globulin 3.1 Albumin/Globulin Ratio 1.5 Lipase 28 - Rads (name of study) CT head Radiology: Prelim report reviewed, See rad report PD MEDICAL DECISION MAKING - ED course Complexity details: reviewed results, re-evaluated patient, considered differential, d/w patient Departure - Departure Disposition: 01 Home, Self Care Clinical Impression: Headache, Weakness Condition: Good Health Concerns: headache, weakness Plan of Treatment: follow up with PCP, return if symptoms worsen Care Goals: resolution of symptoms Assessment: see diagnoses Instructions: ED Cephalgia Unspecified, ED Weakness UKO Discharge Date/Time: 11/25/18 04:55
--- NOTE | 2018-11-25 02:36 | CT Report ---
Reason: headache, left-sided numbness Procedure Date: 11/25/2018 Accession Number: [id number] / [id number] Procedure: CT - HEAD WO CPT Code: FULL RESULT: EXAM: CT HEAD EXAM DATE: 11/25/2018 02:20 AM. CLINICAL HISTORY: Headache, left-sided numbness. COMPARISON: None. TECHNIQUE: Multiaxial CT images were obtained from the foramen magnum to the vertex. Reformats: Sagittal and coronal. IV contrast: None. In accordance with CT protocol optimization, one or more of the following dose reduction techniques were utilized for this exam: automated exposure control, adjustment of mA and/or KV based on patient size, or use of iterative reconstructive technique. FINDINGS: Parenchyma: No intraparenchymal hemorrhage. No evidence of mass, midline shift, or CT findings of infarction. Bonilla-white differentiation is distinct. Extraaxial Spaces: Normal for age. No subdural or epidural collections identified. Ventricles: Normal in size and position. Sinuses and Orbits: Left maxillary sinus disease. Bones: No evidence of fracture or calvarial defect. Other: None. IMPRESSION: 1. No acute intracranial abnormality. 2. Left maxillary sinus disease. RADIA
[2018-11-25 04:54] VITALS: BP 118/78
== END 2018-11-25 04:55 | disposition home or self-care (01) ==
LOC: EDUNIT# → ED 23:24
DX: R51 Headache (principal); R53.1 Weakness
CPT/HCPCS: 36415; 70450; 80053; 83690; 85025; 99283; 99284

== ENCOUNTER 2019-04-23 18:40 | Emergency (ER) | payer OTHER ==
[2019-04-23] MEDS ORDERED: KETOROLAC 60 MG/2 ML VIAL IM STA (18:52)
--- NOTE | 2019-04-23 18:53 | ED Physician Documentation ---
History of Present Illness - Stated complaint Stated Complaint: NECK PX/BAKER/UNCOORDINATED - Chief complaint Chief Complaint: General - History obtained from History obtained from: Patient (28-year-old healthy gentleman got sick about a week ago with cough and congestion. Subsequently went to an urgent care and was tested for strep and influenza which she says were negative. He was put on Tamiflu anyway. Then he started to feel worse with neck pain that is worse with rotation, he went to an ER where he was administered Decadron. Since then he is felt jittery and shaky. He wonders if he might have meningitis. He has no headache or fevers. His persistent symptoms are neck pain, feeling out of it, and jitteriness.) Review of Systems Constitutional: denies: Fever, Chills, Sweats Ears: reports: Ear pain Nose: reports: Rhinorrhea / runny nose, Congestion. denies: Sinus pressure / pain Throat: reports: Sore throat Cardiac: denies: Chest pain / pressure, Palpitations Respiratory: reports: Cough. denies: Dyspnea GI: denies: Nausea, Vomiting, Diarrhea PD PAST MEDICAL HISTORY - Past Medical History Cardiovascular: None Respiratory: None Neuro: None Endocrine/Autoimmune: None - Past Surgical History Past Surgical History: No - Present Medications Home Medications: Ambulatory Orders Medication Instructions Recorded Confirmed No Known Home Medications 11/24/18 11/25/18 - Allergies Allergies/Adverse Reactions: Allergies Allergy/AdvReac Type Severity Reaction Status Date / Time fluoxetine Allergy Anxiety Verified 04/23/19 18:51 - Social History Does the pt smoke?: No Smoking Status: Never smoker Does the pt drink ETOH?: Yes Does the pt have substance abuse?: No - Immunizations Immunizations are current?: Yes - POLST Patient has POLST: No PD ED PE NORMAL - Vitals Vital signs reviewed: Yes - General General: Alert and oriented X 3, No acute distress - HEENT HEENT: PERRL, EOMI, Ears normal, Pharynx benign - Neck Neck: Other (Neck is supple without meningismus, no cervical adenopathy.) - Cardiac Cardiac: RRR, No murmur - Respiratory Respiratory: No respiratory distress, Clear bilaterally - Abdomen Abdomen: Non tender - Back Back: No CVA TTP, No spinal TTP - Derm Derm: Normal color, Warm and dry - Extremities Extremities: No edema, No calf tenderness / cord - Neuro Neuro: Alert and oriented X 3, Normal speech, Other (No nystagmus, normal [id number] testing, normal gait.) Results - Vitals Vitals: Vital Signs - 24 hr 04/23/19 18:45 Temperature 37.1 C Heart Rate 84 Respiratory 14 Rate Blood Pressure 134/98 H O2 Saturation 98 Oxygen O2 Source Room air - Labs Labs: Laboratory Tests 04/23/19 04/23/19 04/23/19 19:05 19:05 19:05 WBC 9.9 RBC 5.04 Hgb 15.5 Hct 44.5 MCV 88.3 MCH 30.8 MCHC 34.8 RDW 13.1 Plt Count 209 MPV 11.5 H Neut # (Auto) 6.2 Lymph # (Auto) 2.7 [place] # (Auto) 0.8 Eos # (Auto) 0.1 Baso # (Auto) 0.1 Absolute Nucleated RBC 0.00 Nucleated RBC % 0.0 Sodium 139 Potassium 3.8 Chloride 104 Carbon Dioxide 28 Anion Gap 7.0 BUN 18 Creatinine 1.0 Estimated GFR (MDRD) 89 Glucose 88 Calcium 9.0 Total Bilirubin 0.4 AST 18 ALT 36 Alkaline Phosphatase 52 Total Protein 8.0 Albumin 4.4 Globulin 3.6 Albumin/Globulin Ratio 1.2 Lipase 33 Infectious [place] Assay NEGATIVE PD MEDICAL DECISION MAKING - ED course ED course: 28-year-old gentleman with benign exam, symptoms are mostly viral but jittery after steroids would probably be a side effect. He is anxious about the possibility of something serious wrong, his history and physical would suggest against that but we will check some screening blood work and readminister Toradol. He says he did feel better for half a day or a day after getting Toradol in the ER previously. Departure - Departure Disposition: 01 Home, Self Care Clinical Impression: Viral syndrome Condition: Good Record reviewed to determine appropriate education?: Yes Instructions: ED Viral Syndrome Comments: Your lab work is normal. Otherwise the syndrome is consistent with a viral etiology. I would stop all medications except for ibuprofen. The shakiness is probably a side effect from the steroids, potentially a little bit the Tamiflu as well. Return for new or worsening symptoms.
[2019-04-23 19:14] LABS: BASOPHILS # (AUTO) 0.1 10^3/uL (0.0-0.1); BASOPHILS % (AUTO) 0.5 %; EOSINOPHILS # (AUTO) 0.1 10^3/uL (0.0-0.7); EOSINOPHILS % (AUTO) 1.1 %; HGB - HEMOGLOBIN 15.5 g/dL (14.0-18.0); LYMPHOCYTES # (AUTO) 2.7 10^3/uL (1.5-3.5); LYMPHOCYTES % (AUTO) 27.1 %; MEAN CORPUSCULAR HEMOGLOBIN 30.8 pg (27.0-31.0); MEAN CORPUSCULAR HGB CONC 34.8 g/dL (32.0-36.0); MEAN CORPUSCULAR VOLUME 88.3 fL (80.0-94.0); MEAN PLATELET VOLUME 11.5 fL (7.4-11.4); MONOCYTES # (AUTO) 0.8 10^3/uL (0.0-1.0); MONOCYTES % (AUTO) 8.1 %; NEUTROPHILS # (AUTO) 6.2 10^3/uL (1.5-6.6); NEUTROPHILS % (AUTO) 62.4 %; PLT - PLATELET COUNT 209 10^3/uL (130-450); RED BLOOD COUNT 5.04 10^6/uL (4.70-6.10); RED CELL DISTRIBUTION WIDTH 13.1 % (12.0-15.0); WHITE BLOOD COUNT 9.9 x10^3/uL (4.8-10.8)
[2019-04-23 19:25] LABS: ALBUMIN 4.4 g/dL (3.2-5.5); ALBUMIN/GLOBULIN RATIO 1.2 (1.0-2.2); BILIRUBIN,TOTAL 0.4 mg/dL (0.2-1.0)
[2019-04-23 19:37] VITALS: BP 115/62
== END 2019-04-23 19:42 | disposition home or self-care (01) ==
LOC: ED 18:40
DX: B34.9 Viral infection, unspecified (principal); R25.8 Other abnormal involuntary movements; T38.0X5A Adverse effect of glucocorticoids and synthetic analogues, initial encounter
CPT/HCPCS: 36415; 80053; 83690; 85025; 86308; 96372; 99283; 99284

== ENCOUNTER 2019-07-10 20:48 | Emergency (ER) | payer OTHER ==
[2019-07-10] MEDS ORDERED: METOCLOPRAMIDE 10 MG TABLET PO STA (21:30)
[2019-07-10] MEDS ORDERED: MECLIZINE 12.5 MG TABLET PO STA (21:30)
[2019-07-10] MEDS ORDERED: SODIUM CHLORIDE 0.9% 1,000 ML IV ONE (21:31)
[2019-07-10] MEDS ORDERED: ACETAMINOPHEN 325 MG TABLET PO STA (21:31)
--- NOTE | 2019-07-10 21:36 | ED Physician Documentation ---
History of Present Illness - Stated complaint Stated Complaint: DIZZY/BAKER - Chief complaint Chief Complaint: Neuro - Additonal information Additional information: This is a 29-year-old male with a history of migraines who presents with a feeli ng of disequilibrium or dizziness, as well as a headache. Patient's symptoms began last Thursday, he felt a bit off balance, and initially it sounds again have some chest discomfort associated with this, he sought care on and had labs and a CT done which were unremarkable, and here neurologically was normal according to documentation, who was discharged home. Since that time he has not had any chest pain or shortness of breath, but he has developed a headache which is mild to moderate in severity of the bifrontal area of his head. It was gradual in onset. He has continued to feel dizzy which he describes as feeling slightly foggy headed all the time, and intermittenly disequilibrated when he moves around, although he has been able to walk without issue, he has not fallen, has not passed out. He Denies vertigo when he moves his head, denies lightheadedness like he is going to pass out. He denies any neck pain other than he occasionally will have some neck soreness which is c hronic when he sleeps, no change to this. He does not have any weakness or numbness, no vision changes, no slurred speech, no confusion, no head trauma. Review of Systems Constitutional: denies: Fever Eyes: denies: Loss of vision Nose: denies: Rhinorrhea / runny nose Throat: denies: Sore throat Cardiac: denies: Palpitations Respiratory: denies: Dyspnea GI: denies: Abdominal Pain : denies: Dysuria Skin: denies: Lesions Musculoskeletal: denies: Back pain Neurologic: reports: Other (Dizziness, see HPI) Immunocompromised: denies: Immunocompromised PD PAST MEDICAL HISTORY - Past Medical History Cardiovascular: None Respiratory: None Neuro: None Endocrine/Autoimmune: None - Past Surgical History Past Surgical History: No - Present Medications Home Medications: Ambulatory Orders Medication Instructions Recorded Confirmed No Known Home Medications 11/24/18 11/25/18 - Allergies Allergies/Adverse Reactions: Allergies Allergy/AdvReac Type Severity Reaction Status Date / Time fluoxetine Allergy Anxiety Verified 07/07/19 20:25 - Social History Does the pt smoke?: No Smoking Status: Never smoker Does the pt drink ETOH?: Yes Does the pt have substance abuse?: No - Immunizations Immunizations are current?: Yes - POLST Patient has POLST: No PD ED PE NORMAL - Vitals Vital signs reviewed: Yes - General General: Alert and oriented X 3, No acute distress - HEENT HEENT: PERRL - Neck Neck: Supple, no meningeal sign - Cardiac Cardiac: RRR, No murmur - Respiratory Respiratory: Clear bilaterally - Abdomen Abdomen: Normal bowel sounds, Soft, Non tender, Non distended - Derm Derm: Warm and dry - Extremities Extremities: No deformity - Neuro Neuro: Alert and oriented X 3, 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 Patient has a normal gait without any ataxia he is able to do a tandem gait without any signs of ataxia or instability. He walks in the hallway without any perceptible problems. He has normal heel diamond and [id number] testing bilaterally. Normal speech. 5 out of 5 strength with hand squeeze finger abduction wrist extension elbow flexion and extension shoulder abduction hip flexion knee extension and flexion ankle dorsiflexion and plantarflexion bilaterally. Speech is normal, clear, and eloquent. Negative Koko-Hallpike maneuver bilaterally. No nystagmus, normal extraocular movements, visual coates are intact.) - Psych Psych: Normal mood, Normal affect Results - Vitals Vitals: Vital Signs - 24 hr 07/10/19 20:51 Temperature 36 C L Heart Rate 69 Respiratory 18 Rate Blood Pressure 123/84 H O2 Saturation 97 Oxygen O2 Source Room air PD MEDICAL DECISION MAKING - ED course Complexity details: considered differential (Electrolyte abnormality, intracranial mass, bleed, lesion, dissection, hydrocephalus, posterior circulation stroke, Mnire's disease, benign positional vertigo.) ED course: On examination patient is well-appearing, vital signs are unremarkable, and a thorough neurologic exam reveals no abnormalities. He states he feels slightly unsteady on his feet but he is walking very normally and in fact can perform a tandem gait without any problems whatsoever. He has a negative Romberg test as well. He has no signs of ataxia or dysmetria. He has had a CT scan While having similar symptoms several days ago which was unrevealing. He also had a negative cardiac work-up at that time. He is having no chest pain now. He does have a headache which sounds benign and that is gradual in a onset and mild to moderate in severity, and I wonder if some of his symptoms of feeling foggy headed could be related to migraine.IV was inserted, labs are drawn and patient was given migraine cocktail.
[2019-07-10 21:43] LABS: BASOPHILS # (AUTO) 0.1 10^3/uL (0.0-0.1); BASOPHILS % (AUTO) 0.6 %; EOSINOPHILS # (AUTO) 0.1 10^3/uL (0.0-0.7); EOSINOPHILS % (AUTO) 1.1 %; HGB - HEMOGLOBIN 15.2 g/dL (14.0-18.0); LYMPHOCYTES # (AUTO) 2.9 10^3/uL (1.5-3.5); LYMPHOCYTES % (AUTO) 30.9 %; MEAN CORPUSCULAR HEMOGLOBIN 30.7 pg (27.0-31.0); MEAN CORPUSCULAR HGB CONC 34.4 g/dL (32.0-36.0); MEAN CORPUSCULAR VOLUME 89.3 fL (80.0-94.0); MONOCYTES # (AUTO) 0.6 10^3/uL (0.0-1.0); MONOCYTES % (AUTO) 6.1 %; NEUTROPHILS # (AUTO) 5.8 10^3/uL (1.5-6.6); NEUTROPHILS % (AUTO) 60.9 %; PLT - PLATELET COUNT 194 10^3/uL (130-450); RED BLOOD COUNT 4.95 10^6/uL (4.70-6.10); RED CELL DISTRIBUTION WIDTH 13.3 % (12.0-15.0); WHITE BLOOD COUNT 9.5 x10^3/uL (4.8-10.8)
[2019-07-10 21:52] LABS: CALCIUM 8.9 mg/dL (8.5-10.3); CREATININE 0.9 mg/dL (0.6-1.2)
[2019-07-10] MEDS ORDERED: KETOROLAC 30 MG/ML VIAL IVP STA (22:10)
[2019-07-10 23:00] VITALS: BP 122/69
== END 2019-07-10 23:00 | disposition home or self-care (01) ==
LOC: ED 20:48
DX: R42 Dizziness and giddiness (principal)
CPT/HCPCS: 36415; 80048; 85025; 96374; 99283; 99284; A9270

== ENCOUNTER 2019-12-04 15:17 | Emergency (ER) | payer OTHER ==
[2019-12-04 15:24] VITALS: BP 137/78
--- NOTE | 2019-12-04 15:29 | ED Physician Documentation ---
PD HPI URI - Stated complaint Stated Complaint: SORE THROAT - Chief complaint Chief Complaint: Heent - History obtained from History obtained from: Patient - History of Present Illness Timing - onset: How many days ago (few) Timing duration: Days (few) Timing details: Gradual onset, Still present Associated symptoms: Sore throat (mostly under the tongue area and right some of mouth), Swollen nodes (right submandibular). No: Fever Contributing factors: No: Sick contact, Travel, Immunocompromised Similar symptoms before: Has not had sx before Review of Systems Constitutional: reports: Myalgias, Fatigue. denies: Fever Throat: reports: Sore throat (right sided sublingually and right anterior submandibular area). denies: Swollen tonsils Respiratory: denies: Dyspnea, Cough GI: denies: Nausea, Vomiting, Diarrhea Skin: denies: Rash PD PAST MEDICAL HISTORY - Past Medical History Cardiovascular: None Respiratory: None Neuro: None Endocrine/Autoimmune: None Musculoskeletal: Other - Past Surgical History Past Surgical History: No - Present Medications Home Medications: Ambulatory Orders Medication Instructions Recorded Confirmed Meloxicam 7.5 mg PO DAILY #30 tablet 08/02/19 diazePAM [Valium] 5 mg PO DAILY PRN #10 tablet 08/02/19 Chlorhexidine Gluconate [Peridex] 15 ml MM TID #118 ml 12/04/19 Doxycycline Monohydrate 100 mg PO BID #14 tablet 12/04/19 dexAMETHasone [Decadron] 4 mg PO DAILY #5 tablet 12/04/19 - Allergies Allergies/Adverse Reactions: Allergies Allergy/AdvReac Type Severity Reaction Status Date / Time fluoxetine Allergy Anxiety Verified 12/04/19 15:21 - Social History Does the pt smoke?: No Smoking Status: Never smoker Does the pt drink ETOH?: Yes Does the pt have substance abuse?: No - Immunizations Immunizations are current?: Yes - POLST Patient has POLST: No PD ED PE NORMAL - Vitals Vital signs reviewed: Yes - General General: Alert and oriented X 3, No acute distress, Well developed/nourished - HEENT HEENT: Ears normal, Moist mucous membranes, Dentition benign (no tenderness along the gumline), Other (The posterior pharynx is without any redness or swelling. There is tenderness in the right sub-will area with a little bit of swelling. There is some redness of the mucosa near the submandibular duct. No palpation of any firmness or bump to suggest a stone. There 's submandibular tender node) - Neck Neck: Supple, no meningeal sign, No adenopathy - Cardiac Cardiac: RRR, No murmur - Respiratory Respiratory: Clear bilaterally Results - Vitals Vitals: Vital Signs - 24 hr 12/04/19 15:21 Temperature 36.5 C Heart Rate 70 Respiratory 16 Rate Blood Pressure 137/78 H O2 Saturation 98 Oxygen O2 Source Room air - Labs Labs: Laboratory Tests 12/04/19 15:25 Group A Strep Rapid Negative PD MEDICAL DECISION MAKING - ED course Complexity details: considered differential (He has pain mostly under the tongue and in the submandibular area and had noticed some redness under the tongue. It sounds like some sublingual adenitis and is clinically swollen and tender in the area), d/w patient ED course: He is concerned about coronavirus as a cause and it seems reasonable to do a COVID test for him. Departure - Departure Disposition: 01 Home, Self Care Clinical Impression: Submandibular gland inflammation Condition: Stable Record reviewed to determine appropriate education?: Yes Instructions: ED Submandibular Gland Infec Follow-Up: Laxmi Lovell MD [Primary Care Provider] - Prescriptions: dexAMETHasone [Decadron] 4 mg PO DAILY #5 tablet Doxycycline Monohydrate 100 mg PO BID #14 tablet Chlorhexidine Gluconate [Peridex] 15 ml MM TID #118 ml Comments: This seems like some inflammation and presumed infection of the submandibular gland which is a saliva gland. We will treated with anti-inflammatories as well as doxycycline antibiotic. Use chlorhexidine oral antiseptic rinse 2-3 times a day for the next several days. You add Tylenol or ibuprofen if needed for pains. Recheck if not improved well over the next 2 to 3 days. We did do COVID test and that should result tomorrow. Presume we will call you with the result when available.
[2019-12-04 15:37] LABS: RAPID STREP SCREEN Negative (Negative)
[2019-12-04] MEDS ORDERED: DOXYCYCLINE 100 MG TABLET PO STA (15:47)
[2019-12-04] MEDS ORDERED: ACETAMINOPHEN 325 MG TABLET PO STA (15:47)
[2019-12-04] MEDS ORDERED: DEXAMETHASONE 10 MG/ML VIAL PO STA (15:47)
[2019-12-04] MEDS ORDERED: CHERRY SYRUP 10 ML UDC PO ONE (15:47)
== END 2019-12-04 16:09 | disposition home or self-care (01) ==
LOC: ED 15:17
DX: K11.20 Sialoadenitis, unspecified (principal); Z11.59 Encounter for screening for other viral diseases
CPT/HCPCS: 81599; 87070; 87430; 99283; 99284; A9270

== ENCOUNTER 2020-02-13 17:51 | Emergency (ER) | payer OTHER ==
--- NOTE | 2020-02-13 18:10 | ED Physician Documentation ---
PD HPI WOUND RECHECK - Stated complaint Stated Complaint: RASH - Histroy obtained from History obtained from: Patient (Burning rash on the lateral right thigh starting today. There is no trauma. No other rashes. Never had it before.) Review of Systems Constitutional: denies: Fever, Chills Cardiac: denies: Chest pain / pressure, Palpitations Respiratory: denies: Dyspnea, Cough GI: denies: Abdominal Pain, Nausea, Vomiting PD PAST MEDICAL HISTORY - Past Medical History Cardiovascular: None Respiratory: None Neuro: None Endocrine/Autoimmune: None Musculoskeletal: Other - Past Surgical History Past Surgical History: No - Present Medications Home Medications: Ambulatory Orders Medication Instructions Recorded Confirmed Cephalexin [Keflex] 500 mg PO Q6H #28 capsule 02/13/20 Mupirocin 1 gm TP TID #2 [email or web address] 02/13/20 Omeprazole 40 mg PO DAILY 02/13/20 02/13/20 - Allergies Allergies/Adverse Reactions: Allergies Allergy/AdvReac Type Severity Reaction Status Date / Time fluoxetine Allergy Anxiety Verified 02/13/20 18:09 - Social History Does the pt smoke?: No Smoking Status: Never smoker Does the pt drink ETOH?: Yes Does the pt have substance abuse?: No - Immunizations Immunizations are current?: Yes - POLST Patient has POLST: No PD ED PE NORMAL - Vitals Vital signs reviewed: Yes - General General: Alert and oriented X 3, No acute distress - HEENT HEENT: PERRL, EOMI - Neck Neck: Supple, no meningeal sign, No bony TTP - Extremities Extremities: Other (There is an area of mild skin breakdown just into the dermis that is linear on the lateral upper right thigh most consistent with impetigo with just a little bit of honey crust drainage.) - Neuro Neuro: Alert and oriented X 3, Normal speech Results - Vitals Vitals: Oxygen O2 Source Room air Departure - Departure Disposition: Home, Self Care Clinical Impression: Impetigo any site Condition: Good Record reviewed to determine appropriate education?: Yes Instructions: Impetigo Prescriptions: Cephalexin [Keflex] 500 mg PO Q6H #28 capsule Mupirocin 1 gm TP TID #2 [email or web address] Comments: Rash is most consistent with a skin infection called impetigo. Use the antibiotic ointment and orally and should go away quickly. Return if worse.
[2020-02-13 18:11] VITALS: BP 146/76
== END 2020-02-13 18:14 | disposition home or self-care (01) ==
LOC: ED 17:51
DX: L01.00 Impetigo, unspecified (principal)
CPT/HCPCS: 99281; 99282

== ENCOUNTER 2020-06-17 15:27 | Emergency (ER) | payer OTHER ==
--- NOTE | 2020-06-17 15:48 | ED Physician Documentation ---
PD HPI CHEST PAIN - Stated complaint Stated Complaint: FAST HEART RATE/SHAKY/BACK PX/NAUSEA - History obtained from History obtained from: Patient - Additional information Additional information: He presents with about 5 to 6 days feeling like his heart is racing, if he does any activity he gets tired easily and developed some chest pounding which is slowly worsening. He complains of low back pain radiating to both legs without any swelling. He denies drug or alcohol use. Did cut down on caffeine a few days ago but was not using it in excess anyways. States he is never had anything like this before but note made of relatively frequent ER visits for nonspecific complaints with multiple negative work-ups. Review of Systems Ten Systems: 10 systems reviewed and negative Constitutional: reports: Sweats Cardiac: reports: Chest pain / pressure, Palpitations, Calf pain. denies: Pedal edema Respiratory: reports: Dyspnea. denies: Cough PD PAST MEDICAL HISTORY - Past Medical History Past Medical History: Yes Cardiovascular: None Respiratory: None Neuro: None Endocrine/Autoimmune: None Musculoskeletal: Other - Past Surgical History Past Surgical History: Yes - Present Medications Home Medications: Ambulatory Orders Medication Instructions Recorded Confirmed Mupirocin 1 gm TP TID #2 [email or web address] 02/13/20 Omeprazole 40 mg PO DAILY 02/13/20 02/13/20 cephALEXin [Keflex] 500 mg PO Q6H #28 capsule 02/13/20 LORazepam [Ativan] 1 mg PO TID PRN #10 tablet 06/17/20 - Allergies Allergies/Adverse Reactions: Allergies Allergy/AdvReac Type Severity Reaction Status Date / Time fluoxetine Allergy Rash Verified 06/17/20 15:51 - Social History Does the pt smoke?: No Smoking Status: Never smoker Does the pt drink ETOH?: Yes Does the pt have substance abuse?: No - Immunizations Immunizations are current?: Yes - POLST Patient has POLST: No PD ED PE NORMAL - Vitals Vital signs reviewed: Yes - General General: Alert and oriented X 3, No acute distress - HEENT HEENT: PERRL, EOMI - Neck Neck: Supple, no meningeal sign, No bony TTP - Cardiac Cardiac: RRR, No murmur - Respiratory Respiratory: No respiratory distress, Clear bilaterally - Abdomen Abdomen: Non tender - Back Back: No spinal TTP - Derm Derm: Normal color, Warm and dry - Extremities Extremities: No edema, No calf tenderness / cord - Neuro Neuro: Alert and oriented X 3, Normal speech Results - Vitals Vitals: Vital Signs - 24 hr 06/17/20 06/17/20 15:40 16:13 Temperature 36.9 C Heart Rate 85 83 Respiratory 22 18 Rate Blood Pressure 133/79 H 122/71 O2 Saturation 97 96 Oxygen O2 Source Room air - EKG (time done) 1534 Rate: Rate (enter#) (91) Rhythm: NSR [place]: Normal Intervals: Normal [place] QRS: Normal Ischemia: Normal ST segments Computer interpretation: Agree with computer - Labs Labs: Laboratory Tests 06/17/20 06/17/20 06/17/20 16:00 16:00 16:00 WBC 8.4 RBC 5.19 Hgb 16.1 Hct 45.8 MCV 88.2 MCH 31.0 MCHC 35.2 RDW 13.1 Plt Count 207 MPV 11.6 H Neut # (Auto) 5.8 Lymph # (Auto) 1.7 [place] # (Auto) 0.7 Eos # (Auto) 0.1 Baso # (Auto) 0.1 Absolute Nucleated RBC 0.00 Nucleated RBC % 0.0 D-Dimer 603.9 H VBG pH VBG pCO2 VBG pO2 VBG HCO3 VBG Total CO2 VBG O2 Saturation VBG Base Excess Sodium 138 Potassium 3.8 Chloride 102 Carbon Dioxide 25 Anion Gap 11.0 BUN 15 Creatinine 1.0 Estimated GFR (MDRD) 88 L Glucose 101 H Calcium 9.0 Total Bilirubin 0.5 AST 21 ALT 48 Alkaline Phosphatase 59 Troponin I High Sens Total Protein 7.6 Albumin 4.3 Globulin 3.3 Albumin/Globulin Ratio 1.3 Lipase 35 TSH Urine Opiates Screen Ur Oxycodone Screen Urine Methadone Screen Ur Propoxyphene Screen Ur Barbiturates Screen Ur Tricyclics Screen Ur Phencyclidine Scrn Ur Amphetamine Screen U Methamphetamines Scrn U Benzodiazepines Scrn Urine Cocaine Screen U Cannabinoids Screen Ethyl Alcohol < 5.0 06/17/20 06/17/20 06/17/20 16:00 16:00 16:00 WBC RBC Hgb Hct MCV MCH MCHC RDW Plt Count MPV Neut # (Auto) Lymph # (Auto) [place] # (Auto) Eos # (Auto) Baso # (Auto) Absolute Nucleated RBC Nucleated RBC % D-Dimer VBG pH 7.363 VBG pCO2 37.1 L VBG pO2 50.7 H VBG HCO3 20.6 L VBG Total CO2 21.8 L VBG O2 Saturation 87.8 H VBG Base Excess -4.1 L Sodium Potassium Chloride Carbon Dioxide Anion Gap BUN Creatinine Estimated GFR (MDRD) Glucose Calcium Total Bilirubin AST ALT Alkaline Phosphatase Troponin I High Sens 3.5 Total Protein Albumin Globulin Albumin/Globulin Ratio Lipase TSH 1.13 Urine Opiates Screen Ur Oxycodone Screen Urine Methadone Screen Ur Propoxyphene Screen Ur Barbiturates Screen Ur Tricyclics Screen Ur Phencyclidine Scrn Ur Amphetamine Screen U Methamphetamines Scrn U Benzodiazepines Scrn Urine Cocaine Screen U Cannabinoids Screen Ethyl Alcohol 06/17/20 17:22 WBC RBC Hgb Hct MCV MCH MCHC RDW Plt Count MPV Neut # (Auto) Lymph # (Auto) [place] # (Auto) Eos # (Auto) Baso # (Auto) Absolute Nucleated RBC Nucleated RBC % D-Dimer VBG pH VBG pCO2 VBG pO2 VBG HCO3 VBG Total CO2 VBG O2 Saturation VBG Base Excess Sodium Potassium Chloride Carbon Dioxide Anion Gap BUN Creatinine Estimated GFR (MDRD) Glucose Calcium Total Bilirubin AST ALT Alkaline Phosphatase Troponin I High Sens Total Protein Albumin Globulin Albumin/Globulin Ratio Lipase TSH Urine Opiates Screen NEGATIVE Ur Oxycodone Screen NEGATIVE Urine Methadone Screen NEGATIVE Ur Propoxyphene Screen NEGATIVE Ur Barbiturates Screen NEGATIVE Ur Tricyclics Screen NEGATIVE Ur Phencyclidine Scrn NEGATIVE Ur Amphetamine Screen NEGATIVE U Methamphetamines Scrn NEGATIVE U Benzodiazepines Scrn NEGATIVE Urine Cocaine Screen NEGATIVE U Cannabinoids Screen NEGATIVE Ethyl Alcohol - Rads (name of study) CTPA Radiology: EMP read contemporaneously (Negative) PD MEDICAL DECISION MAKING - ED course ED course: 30-year-old gentleman presents with palpitations, chest pain, trouble breathing, leg pain on both sides with back pain. Note made that this is his seventh visit for nonspecific symptoms this year with predominantly negative work-ups. He had a positive D-dimer today but negative chest CT and pretest probability for PE was very low to start with. He appeared well with normal vital signs. Discussed need for follow-up with potentially echocardiography, neurology referral, Holter monitoring but also discussed the potential that this may be anxiety and he understands. Departure - Departure Disposition: 01 Home, Self Care Clinical Impression: Atypical chest pain Condition: Good Record reviewed to determine appropriate education?: Yes Instructions: ED Chest Pain Atypical Unkn Cause Prescriptions: LORazepam [Ativan] 1 mg PO TID PRN #10 tablet PRN Reason: Anxiety Comments: Given ongoing symptoms, discuss the following [place] Echocardiogram, neurology referral, event/holter monitor. Return if worse, for new symptoms.
[2020-06-17 16:13] LABS: BASOPHILS # (AUTO) 0.1 10^3/uL (0.0-0.1); BASOPHILS % (AUTO) 0.6 %; EOSINOPHILS # (AUTO) 0.1 10^3/uL (0.0-0.7); EOSINOPHILS % (AUTO) 0.6 %; HGB - HEMOGLOBIN 16.1 g/dL (14.0-18.0); LYMPHOCYTES # (AUTO) 1.7 10^3/uL (1.5-3.5); LYMPHOCYTES % (AUTO) 20.6 %; MEAN CORPUSCULAR HGB CONC 35.2 g/dL (32.0-36.0); MEAN CORPUSCULAR VOLUME 88.2 fL (80.0-94.0); MEAN PLATELET VOLUME 11.6 fL (7.4-11.4); MONOCYTES # (AUTO) 0.7 10^3/uL (0.0-1.0); MONOCYTES % (AUTO) 8.1 %; NEUTROPHILS # (AUTO) 5.8 10^3/uL (1.5-6.6); NEUTROPHILS % (AUTO) 69.9 %; PLT - PLATELET COUNT 207 10^3/uL (130-450); RED BLOOD COUNT 5.19 10^6/uL (4.70-6.10); RED CELL DISTRIBUTION WIDTH 13.1 % (12.0-15.0); WHITE BLOOD COUNT 8.4 x10^3/uL (4.8-10.8)
[2020-06-17 16:15] LABS: VBG BASE EXCESS -4.1 mmol/L (-2 - +2); VBG PCO2 37.1 mmHg (41-51); VBG PH 7.363 (7.31-7.41); VBG PO2 50.7 mmHg (25-47); VBG TOTAL CO2 21.8 mmol/L (24-29)
--- NOTE | 2020-06-17 16:19 | XRAY Report ---
PROCEDURE: Chest 1 View X-Ray INDICATIONS: chest pain TECHNIQUE: One view of the chest was acquired. COMPARISON: 07/07/2019 FINDINGS: Surgical changes and devices: None. Lungs and pleura: No pleural effusions or pneumothorax. Lungs are clear. Mediastinum: Mediastinal contours appear normal. Heart size is normal. Bones and chest wall: No suspicious bony lesions. Overlying soft tissues appear unremarkable. IMPRESSION: Portable chest within normal limits for age. Reviewed by: Ishan Cano MD on 06/17/2020 3:18 PM [facility] Approved by: Ishan Cano MD on 06/17/2020 3:18 PM [facility] Station ID: [id number]
[2020-06-17 16:30] LABS: ALBUMIN 4.3 g/dL (3.2-5.5); ALBUMIN/GLOBULIN RATIO 1.3 (1.0-2.2); ALKALINE PHOSPHATASE 59 IU/L (42-121); ALT ALANINE AMINOTRANSFERASE 48 IU/L (10-60); AST ASPARTATE AMINOTRANSFERASE 21 IU/L (10-42); BILIRUBIN,TOTAL 0.5 mg/dL (0.2-1.0); BUN - BLOOD UREA NITROGEN 15 mg/dL (6-20); CARBON DIOXIDE - CO2 25 mmol/L (21-32); CHLORIDE 102 mmol/L (101-111); GLUCOSE 101 mg/dL (70-100); LIPASE 35 U/L (22-51); SODIUM 138 mmol/L (135-145); TOTAL PROTEIN 7.6 g/dL (6.7-8.2)
[2020-06-17] MEDS ORDERED: IOVERSOL 320 100 ML VIAL IVP ONE ×2 (16:51→17:22)
--- NOTE | 2020-06-17 17:32 | CT Report ---
PROCEDURE: ANGIO CHEST W INDICATIONS: CP, high dimer CONTRAST: IV CONTRAST: Optiray 320 ml: 100 PO CONTRAST: *NO PO CONTRAST TECHNIQUE: After the administration of intravenous contrast, 2 mm thick sections acquired from the pulmonary api chava to the posterior costophrenic angles. 3-dimensional maximum intensity projection (MIP) coronal a nd sagittal reformats were then acquired through the thorax. For radiation dose reduction, the follow ing was used: automated exposure control, adjustment of mA and/or kV according to patient size. COMPARISON: Correlation is made with prior chest radiographs 06/17/2020 and 07/08/2019. FINDINGS: Image quality: Limited by bolus timing.. Pulmonary arteries: The density within the pulmonary arteries measures 170 Hounsfield units. Density measurements of greater than 250 are considered to be ideal for evaluation of pulmonary embolism. On this study, no large or central pulmonary oblique and be seen. The pulmonary arteries do not appear e nlarged. Lungs and pleura: Lungs are clear. No pleural effusions or pneumothorax. Central and peripheral ai rways are patent. Mediastinum: Heart size is normal, without pericardial effusion. No mediastinal or hilar adenopathy . Thoracic aorta is normal in caliber and enhancement. Esophagus is normal in caliber, without hiat al hernia. Bones and chest wall: No suspicious bony lesions. Ribs and thoracic spine appear intact throughout. The thyroid is normal. No axillary or supraclavicular adenopathy. Abdomen: Visualized upper abdominal solid organs appear normal in the early arterial phase of enhanc ement. IMPRESSION: Limited study demonstrating no findings of pulmonary embolism. Reviewed by: Ishan Cano MD on 06/17/2020 4:31 PM [place] Approved by: Ishan Cano MD on 06/17/2020 4:31 PM [facility] Station ID: [id number]
[2020-06-17 18:04] LABS: AMPHETAMINE SCREEN,URINE NEGATIVE (NEGATIVE); BENZODIAZEPINES SCREEN, URINE NEGATIVE (NEGATIVE); COCAINE SCREEN URINE NEGATIVE (NEGATIVE); METHADONE SCREEN, URINE NEGATIVE (NEGATIVE); METHAMPHETAMINES SCREEN, URINE NEGATIVE (NEGATIVE); MUDS CUTOFF CONCENTRATIONS CUTOFF CONC BELOW:; OPIATE SCREEN, URINE NEGATIVE (NEGATIVE); OXYCODONE SCREEN, URINE NEGATIVE (NEGATIVE); PROPOXYPHENE SCREEN, URINE NEGATIVE (NEGATIVE); TRICYCLIC ANTIDEPRESSANT,URINE NEGATIVE (NEGATIVE)
[2020-06-17 18:12] VITALS: BP 125/75
== END 2020-06-17 18:11 | disposition home or self-care (01) ==
LOC: ED 15:27
DX: R00.2 Palpitations (principal); R07.89 Other chest pain; M79.605 Pain in left leg; M79.604 Pain in right leg; M54.5 Low back pain
CPT/HCPCS: 71045; 71275; 80306; 80320; 82803; 83690; 84484; 85379; 93005; 99284; Q9967; 80053; 84443; 85025

== ENCOUNTER 2020-09-26 19:10 | Emergency (ER) | payer OTHER ==
[2020-09-26 19:33] VITALS: BP 138/78
[2020-09-26] MEDS ORDERED: CHERRY SYRUP 10 ML UDC PO ONE (21:39)
[2020-09-26] MEDS ORDERED: DEXAMETHASONE 10 MG/ML VIAL PO STA (21:39)
--- NOTE | 2020-09-26 21:42 | ED Physician Documentation ---
History of Present Illness - Stated complaint Stated Complaint: RASH - Chief complaint Chief Complaint: Wound - Additonal information Additional information: 30-year-old male presents emergency department for evaluation of a raised red pruritic rash that began on the dorsum of both his feet 4 days ago. He has no history of similar. He denies wearing any new socks or shoes. He denies walking barefoot outside. He states that it is intensely pruritic and he has been using Benadryl which does improve the appearance of the rash for a short period of time. There have been no fevers or swelling. Review of Systems Constitutional: denies: Fever, Chills Eyes: reports: Reviewed and negative Ears: reports: Reviewed and negative Nose: reports: Reviewed and negative Throat: reports: Reviewed and negative Cardiac: reports: Reviewed and negative Respiratory: reports: Reviewed and negative GI: reports: Reviewed and negative : reports: Reviewed and negative Skin: reports: Rash Musculoskeletal: reports: Reviewed and negative PD PAST MEDICAL HISTORY - Past Medical History Cardiovascular: None Respiratory: None Neuro: None Endocrine/Autoimmune: None Musculoskeletal: Other - Past Surgical History Past Surgical History: Yes - Present Medications Home Medications: Ambulatory Orders Medication Instructions Recorded Confirmed Ketoconazole [Ketodan] 100 gm TP DAILY 09/26/20 09/26/20 Triamcinolone 0.1% Oint [Kenalog 1 applic TOP BID #15 gm 09/26/20 0.1% Oint] - Allergies Allergies/Adverse Reactions: Allergies Allergy/AdvReac Type Severity Reaction Status Date / Time fluoxetine Allergy Rash Verified 09/26/20 19:32 - Social History Does the pt smoke?: No Smoking Status: Never smoker Does the pt drink ETOH?: Yes Does the pt have substance abuse?: No - Immunizations Immunizations are current?: Yes - POLST Patient has POLST: No PD ED PE EXPANDED - Derm Derm: Rash (Raised red irregular appearing blanchable rash on the dorsum of both feet. small amount of superficial fluid filled blisters. No intertriginous desquimation. Rashes not present on the soles of the feet nor does it extend past the ankles.) - Extremities Extremities: Normal, Pedal Pulses Present. No: Deformity, Tenderness Results - Vitals Vitals: Vital Signs - 24 hr 09/26/20 19:29 Temperature 37 C Heart Rate 84 Respiratory 16 Rate Blood Pressure 138/78 H O2 Saturation 97 Oxygen O2 Source Room air PD MEDICAL DECISION MAKING - ED course Complexity details: d/w patient ED course: 30-year-old male presents emergency department with a pruritic raised rash on the dorsum of both his feet for 4 days. Unclear etiology. He has had some relief of this with Benadryl but given the appearance I am most suspicious about acute dyshidrotic dermatitis. He was given a one-time dose of Decadron here in the emergency department and will be discharged with a prescription for triamcinolone cream. I have recommended that he use a foot powder in his shoes and boots every day to help dry the feet out as moisture may be contributing. Clinically this is not consistent with cellulitis therefore will defer antibiotics. Emergent return precautions discussed. Departure - Departure Disposition: 01 Home, Self Care Clinical Impression: Dyshidrotic foot dermatitis Condition: Stable Record reviewed to determine appropriate education?: Yes Instructions: Dermatitis Atopic Manage Prescriptions: Triamcinolone 0.1% Oint [Kenalog 0.1% Oint] 1 applic TOP BID #15 gm Comments: Hermann as we discussed it looks like you have a form of dermatitis on the tops of your feet called dyshidrotic dermatitis. This is the small blisters that you see. This is usually do an allergic reaction but today we do not know what is causing yours. Would like you to continue to take the Benadryl twice daily. I have given you a one-time dose of Decadron here in the emergency department which should help with the rash. I would also like you to apply the triamcinolone ointment to the tops your feet twice a day. I would expect this to begin to resolve over the next 3 to 4 days. If it is significantly worsening please return to the ER for a second look.
== END 2020-09-26 21:49 | disposition home or self-care (01) ==
LOC: ED 19:10
DX: L30.1 Dyshidrosis [pompholyx] (principal)
CPT/HCPCS: 99282; 99283; A9270

== ENCOUNTER 2020-10-10 21:18 | Emergency (ER) | payer OTHER ==
[2020-10-10 21:23] VITALS: BP 139/83
--- NOTE | 2020-10-10 21:55 | ED Physician Documentation ---
PD HPI OPHTHO - Stated complaint Stated Complaint: RT EYE INJURY - Chief complaint Chief Complaint: Heent - History obtained from History obtained from: Patient - Additional information Additional information: Patient comes emergency department chief complaint of right eye irritation after being hit cardboard. Patient states he was pulling a cardboard box apart when The piece that he was pulling on tour of the box. Patient states his hand jerked back and that the cardboard hit him in the right eye. Patient states he immediately rinsed his eye out, but has felt a sense of irritation since. The incident happened approximately 7 hours ago. Patient does not wear contacts or glasses, but has noticed that the vision in his right eye seems slightly blurry. He has not noticed any drainage or excess tearing. Initially, the eye was red, but now is better. No other complaints at this time. Review of Systems Ten Systems: 10 systems reviewed and negative Constitutional: reports: Reviewed and negative Eyes: reports: Decreased vision (blurred, R eye), Irritation Ears: reports: Reviewed and negative Nose: reports: Reviewed and negative Throat: reports: Reviewed and negative Cardiac: reports: Reviewed and negative Respiratory: reports: Reviewed and negative GI: reports: Reviewed and negative : reports: Reviewed and negative Skin: reports: Reviewed and negative Musculoskeletal: reports: Reviewed and negative Neurologic: reports: Reviewed and negative Psychiatric: reports: Reviewed and negative Endocrine: reports: Reviewed and negative Immunocompromised: reports: Reviewed and negative PD PAST MEDICAL HISTORY - Past Medical History Past Medical History: Yes Cardiovascular: None Respiratory: None Neuro: None Endocrine/Autoimmune: None Musculoskeletal: Other - Past Surgical History Past Surgical History: Yes - Present Medications Home Medications: Ambulatory Orders Medication Instructions Recorded Confirmed Gentamicin 0.3% Ophth Drops 1 drops OPTH BID #5 ml 10/10/20 [Garamycin] - Allergies Allergies/Adverse Reactions: Allergies Allergy/AdvReac Type Severity Reaction Status Date / Time fluoxetine Allergy Rash Verified 10/10/20 21:23 - Social History Does the pt smoke?: No Smoking Status: Never smoker Does the pt drink ETOH?: Yes Does the pt have substance abuse?: No - Immunizations Immunizations are current?: Yes - POLST Patient has POLST: No PD ED PE NORMAL - Vitals Vital signs reviewed: Yes - General General: Alert and oriented X 3, No acute distress - HEENT HEENT: Atraumatic, PERRL, EOMI, Moist mucous membranes, Other (No conjunctival injection. No foreign body with magnification and eversion of eyelids. No discharge or tearing. Slight corneal abrasion noted without streaming.) - Neck Neck: Supple, no meningeal sign - Respiratory Respiratory: No respiratory distress - Derm Derm: Normal color, Warm and dry, No rash - Extremities Extremities: No deformity - Neuro Neuro: Alert and oriented X 3 - Psych Psych: Normal mood, Normal affect Results - Vitals Vitals: Vital Signs - 24 hr 10/10/20 21:21 Temperature 36.3 C L Heart Rate 77 Respiratory 16 Rate Blood Pressure 139/83 H O2 Saturation 97 Oxygen O2 Source Room air PD MEDICAL DECISION MAKING - ED course Complexity details: considered differential, d/w patient ED course: I discussed with the patient that he has a very mild corneal abrasion which is probably the reason for his ongoing eye irritation. This is expected to resolve very quickly, but nonetheless, the patient has been prescribed gentamicin ophthalmic drops. We have discussed symptomatic management at home, as well as the usual indications for ophthalmology follow-up and for return to the emergency department. Departure - Departure Disposition: 01 Home, Self Care Clinical Impression: Corneal abrasion, right Qualifiers: Encounter type: initial encounter Qualified Code(s): S05.01XA - Injury of conjunctiva and corneal abrasion without foreign body, right eye, initial encounter Condition: Stable Instructions: ED Eye Injury Corneal Abrasion Follow-Up: Juan Carlos Okeefe MD [Provider Admit Priv/Credential] - Prescriptions: Gentamicin 0.3% Ophth Drops [Garamycin] 1 drops OPTH BID #5 ml Comments: Your examination shows a mild abrasion, or scrape, on the surface of your eye. This is very mild, and will be expected to heal well without complications. The re is no evidence of any foreign material stuck in your eye. Your pupil is reacting appropriately and the rest of your eye looks good. Please use the drops as directed and ibuprofen and Tylenol as needed for any discomfort you may have. You may follow-up with an inspector eyeglass frames if you have any further concerns. Discharge Date/Time: 10/10/20 22:05
== END 2020-10-10 22:05 | disposition home or self-care (01) ==
LOC: ED 21:18
DX: S05.01XA Injury of conjunctiva and corneal abrasion without foreign body, right eye, initial encounter (principal); W26.2XXA Contact with edge of stiff paper, initial encounter
CPT/HCPCS: 99282; 99284

== ENCOUNTER 2021-01-07 08:00 | Outpatient (CLI) | payer OTHER ==
[2021-01-07 17:59] LABS: HCT - HEMATOCRIT 46.4 % (42.0-52.0); HGB - HEMOGLOBIN 15.7 g/dL (14.0-18.0); MEAN CORPUSCULAR HEMOGLOBIN 30.5 pg (27.0-31.0); MEAN CORPUSCULAR HGB CONC 33.8 g/dL (32.0-36.0); MEAN CORPUSCULAR VOLUME 90.3 fL (80.0-94.0); MEAN PLATELET VOLUME 12.7 fL (7.4-11.4); RED BLOOD COUNT 5.14 10^6/uL (4.70-6.10); RED CELL DISTRIBUTION WIDTH 13.4 % (12.0-15.0); WHITE BLOOD COUNT 6.4 x10^3/uL (4.8-10.8)
[2021-01-07 18:56] LABS: URIC ACID 7.1 mg/dL (2.6-7.2)
[2021-01-07 19:07] LABS: CRP - C-REACTIVE PROTEIN < 1.0 mg/dL (0-1.0)
[2021-01-07 19:41] LABS: RHEUMATOID FACTOR NEGATIVE (Negative)
[2021-01-09 10:23] LABS: ANA SCREEN NEGATIVE (NEGATIVE)
[2021-01-09 18:50] LABS: DNA (DS) ANTIBODY 1 IU/mL
[2021-01-09 20:52] LABS: CYCLIC CITRULL PEPTIDE CCP IGG <16 UNITS
== END 2021-01-07 23:59 | disposition home or self-care (01) ==
LOC: LAB.N 08:00
PROVIDERS: ATTEND Family Medicine
DX: M19.90 Unspecified osteoarthritis, unspecified site (principal)
CPT/HCPCS: 36415; 84550; 85027; 85651; 86038; 86140; 86200; 86225; 86430